=== PATIENT | female | born 1985 | race Caucasian/White ===

== ENCOUNTER 2023-01-25 08:03 | Outpatient (CLI) | payer MEDICAID, SELFPAY | END 2023-01-25 08:04 | disposition home or self-care (01) | LOC: LKVREF 08:04 | PROVIDERS: PCP Physician Assistant Medical; Visit Provider Physician Assistant Medical | DX: R06.81 Apnea, not elsewhere classified (principal); Z13.6 Encounter for screening for cardiovascular disorders | CPT/HCPCS: 80053; 80061 ==

== ENCOUNTER 2023-05-30 20:31 | Outpatient (CLI) | payer MEDICAID, SELFPAY ==
--- NOTE | 2023-06-05 08:16 | W.PM.SLEEP ---
Sleep Study Details Details Interpreting Provider: Abdias Date of Sleep Study: 05/30/23 Sleep Study Details: STUDY TYPE:? Hospital-based without CPAP titration ? BMI:? 26.6 ORDERING PROVIDER:? Abdias INDICATION:? Concerns about sleep apnea ? SLEEP SUMMARY:? Total sleep time 406.5, arousal index 18.5 RESPIRATORY SUMMARY:? Mean oxygen awake 95 asleep 94 minimum 92 AHI 0.3 RDI 4.1, supine REM AHI 0. The entire study was done supine. PERIODIC LIMB MOVEMENTS OF SLEEP:? None were noted CARDIAC:? Awake 71, asleep 65, no arrhythmias noted IMPRESSION:? This study does not demonstrate clinically significant obstructive sleep apnea. If sleep disorder is strongly suspected then repeat study with MSLT to follow would be indicated. RECOMMENDATION: See impression
--- NOTE | 2023-06-12 13:00 | W.PM.SLEEP ---
Sleep Study Details Details Interpreting Provider: Abdias Date of Sleep Study: 05/30/23 Sleep Study Details: STUDY TYPE:? Hospital-based ? BMI:? 26.6 ORDERING PROVIDER:? Abdias INDICATION:? Concerns about sleep apnea ? SLEEP SUMMARY:? 406.5 minutes total sleep time, efficiency 93.2, arousal index 18.5 RESPIRATORY SUMMARY:? Mean oxygen awake 95 asleep 94 minimum 92 AHI 0.3 RDI 4.1 REM AHI 0. Note diagnostic portion of study was done in the supine position PERIODIC LIMB MOVEMENTS OF SLEEP:? None were observed CARDIAC:? Awake 71 asleep 65 no arrhythmias noted IMPRESSION:? This study does not demonstrate clinically significant obstructive sleep apnea. If sleep disorder is strongly suspected would recommend repeat study with an MSLT to follow RECOMMENDATION: See above
== END 2023-05-30 20:32 | disposition home or self-care (01) ==
LOC: SLEEP 20:34
PROVIDERS: PCP Physician Assistant Medical; Visit Provider Otolaryngology
DX: G47.10 Hypersomnia, unspecified (principal); R06.83 Snoring
CPT/HCPCS: 95810

== ENCOUNTER 2025-05-07 08:01 | Outpatient (CLI) | payer MEDICAID, SELFPAY | END 2025-05-07 08:02 | disposition home or self-care (01) | LOC: FRMREF 08:02 | PROVIDERS: PCP Physician Assistant Medical; Visit Provider Nurse Practitioner Family | DX: D64.9 Anemia, unspecified (principal); R53.83 Other fatigue; Z13.6 Encounter for screening for cardiovascular disorders; Z13.1 Encounter for screening for diabetes mellitus | CPT/HCPCS: 80061; 82728; 82947; 84443 ==